=== PATIENT | female | born 1950 | race African-American/Black ===

== ENCOUNTER 2016-06-14 04:36 | Inpatient (IN) | payer MEDICARE ==
[2016-06-14] MEDS ORDERED: NS 1,000 ML IV ONE ×3 (04:59→06:16)
--- NOTE | 2016-06-14 05:04 | EDPRACDOC ---
- General Information Chief Complaint: Altered Mental Status Stated Complaint: HYPERGLYCEMIA Time Seen by Provider: 06/14/16 04:44 Information Source: [employer] Mode Of Arrival: Ambulance Home Medications: Home Medications Metformin HCl 1,000 mg PO BID 11/19/12 Lipase/Protease/Amylase [Zenpep Dr 20,000 Units Capsule] 3 cap PO .TIDWM SEE COMMENTS 12/08/12 Escitalopram Oxalate [Lexapro] 20 mg PO DAILY 02/25/13 Alprazolam [Xanax] 0.5 mg PO Q8H PRN #90 tablet 07/06/14 Losartan Potassium [Cozaar] 50 mg PO DAILY 08/02/14 Sitagliptin Phosphate [Januvia] 100 mg PO DAILY 08/21/14 Bupropion HCl [Wellbutrin Sr] 150 mg PO BID 07/24/15 Docusate Sodium [Stool Softener] 100 mg PO DAILY PRN 07/24/15 Insulin Glargine [Lantus Pen] 6 unit SQ QHS 07/24/15 Insulin Glargine [Lantus Pen] 11 unit SQ QAM 07/24/15 Iron [Niferex-150] 1 cap PO DAILY 07/24/15 Loratadine [Claritin] 10 mg PO DAILY PRN 07/24/15 Magnesium Oxide [Magnesium] 400 mg PO DAILY 07/24/15 Meclizine HCl 25 mg PO DAILY PRN 07/24/15 Meloxicam 15 mg PO DAILY 07/24/15 Multivitamin [Multiple Vitamins] 1 each PO DAILY 07/24/15 Oxycodone HCl/Acetaminophen [Percocet 5-325 mg Tablet] 1 tab PO Q6H PRN Tramadol HCl 50 mg PO Q6H PRN 07/24/15 Vitamin E 200 unit PO DAILY 07/24/15 Allergies/Adverse Reactions: Allergies Allergy/AdvReac Type Severity Reaction Status Date / Time No Known Allergies Allergy Verified 05/04/16 03:37 - History of Present Illness Onset: WO[employer]WORK[employer]ER HPI: EMS CALLED TO [facility]IDENCE BY FRIEND. PT ALTERED. FOUND TO HAVE HIGH BLOOD SUGAR. EMS WAS UNABLE TO DETERMINE HOW IT WAS DISCOVERED THAT PT WAS ALTERED IN THE MIDDLE OF THE NIGHT. PT GIVES LIMITED HISTORY. PT DID SAY SOMETHING ABOUT TAKING HER MEDICINES TOO FAST. - Treatment Prior to ED Arrival Reported Medications/Treatment [employer] EMS Treatment BLS IV No ED Past Medical History - History Reviewed Yes Nurses notes reviewed and agree except as marked - Patient Medical History Cardiac History: Reports: Hypertension, Hypercholesterolemia Respiratory History: Reports: Asthma, COPD (no oxygen at home), Pneumonia, Emphysema GI/ History: Reports: Renal Disease, Urinary Tract Infection, Gastroesophageal Reflux, Pancreatitis Musculoskeletal History: Reports: Arthritis (left shoulder) Psychological History: Reports: Depression, Anxiety. Denies: Substance Use Disorder Systemic History: Reports: Diabetes (Type 2). Denies: Cancer Surgical History: Reports: Cholecystectomy, Other (Knee) - Family Medical History Reports: Hypertension, Diabetes, Cancer (Sister), Stroke, Cardiac Disorders - Social Medical History Smoking Status: Heavy tobacco smoker (5 or more cigarettes/day or daily pipe/ cigar) (Smokes 1 ppd. Started at 15 yo.) Social History: Denies: Substance Use Disorder EDM Review of Systems - Review of Systems ROS Negative Except as Marked: Yes All systems reviewed and were negative except as marked ROS Unobtainable: Yes Review of systems cannot be obtained due to the patient's medical condition Respiratory: No Symptoms Reported Cardiovascular: No Symptoms Reported Gastrointestinal: No Symptoms Reported - Physical Exam Constitutional: Alert (Awake), No apparent distress Oriented to: Person, Place Last recorded Vital Signs: Last Vital Signs Temp 98.1 F 06/14/16 04:36 Pulse 67 06/14/16 04:48 Resp 16 06/14/16 04:48 BP 128/58 L 06/14/16 04:48 Pulse Ox 93 06/14/16 04:48 Oxygen Pulse Oxygen Saturation 93 O2 Device Room Air Oxygen Flow Rate Fraction of Inspired Oxygen ( FIO2) - HEENT Head: Normal ( normocephalic) Eye Exam: Normal (PERRL, EOMI, Sclera white) Oropharynx: Normal (Pharynx:Moist without exudate,Gums-no swelling) Nose: No Symptoms Reported (septum midline) Neck: Normal (FROM, trachea at midline) - Respiratory/Cardiovascular Respiratory: Normal - CTA (BBS clear to auscultation without adventitious sounds ) Cardiovascular: Normal (RRR without murmur, gallop or rub) - GI Auscultation: Normal (NABS) Tenderness: Non tender Ortega's Sign: Negative - Musculoskeletal Back: Normal (Non-Tender) Extremities: Normal (Normal tone, Pulses 2+ No cyanosis or edema, FROM) - Integumentary Skin: Normal, Warm, Dry Lymphatics: Normal (no adenopathy) - Neurologic Motor Function: Normal (Normal tone, Pulses 2+ No cyanosis or edema, FROM) Cranial Nerve: Normal (CN II-X11 intact sensation, strength 5/5) Cerebellar: Normal Mood Description: Normal - Re-evaluation Re-evaluation 1 Re-evaluation Time: 06:24 NO CHANGE IN MENTAL STATUS - Results 06/14/16 04:44 06/14/16 04:44 POC Capillary Glucose > 600 MG/DL (70-99) H* 06/14/16 04:39 Lab Results 06/14/16 04:39 POC Capillary Glucose > 600 H* - EKG EKG #1 EKG Time: 05:10 -: Yes EKG interpreted by me Rate: bpm: 68 Ethel: Normal Hypertrophy: None (EARLY REPOL) ST: Normal Comments: NORMAL EKG - Departure Yes I personally saw and evaluated the patient. Disposition: Admit IP To This Hospital Condition: Stable Final Diagnosis: Acute renal insufficiency, Dehydration Diabetic ketoacidosis Qualifiers: Diabetes mellitus type: type 1 Diabetes mellitus complication detail: with coma Qualified Code(s): E10.11 - Type 1 diabetes mellitus with ketoacidosis with coma Forms: Patient Discharge Instructions, ED Discharge Instructions Decision to Admit Time: 06:16 Decision to admit date: 06/14/16 Decision to admit: from ED - Physician Consulted Hospitalist Time Called: 06:17 Provider Called: Yony Castaneda Time [employer] Returned Call: 06:22
[2016-06-14 05:13] LABS: AUTOMATED BASOPHIL 0.5 % (0-2); AUTOMATED EOSINOPHIL 3.5 % (0-5); AUTOMATED LYMPH 36.7 % (17-44); AUTOMATED NEUTROPHIL 50.3 % (45-76); MPV 8.7 fL (7.4-10.4)
[2016-06-14 05:19] LABS: BLOOD UREA NITROGEN 52 MG/DL (7-17); CALC CORRECTED 8.9 MG/DL (8.4-10.2); CALCIUM 8.6 MG/DL (8.4-10.2); CHLORIDE 90 mEq/L (98-107); TOTAL PROTEIN 6.4 G/DL (6.3-8.2)
[2016-06-14 05:21] LABS: PARTIAL THROMB. TIME 24.3 SEC (22-35)
[2016-06-14 05:28] LABS: CALCULATED OSMOLALITY 287 MOs/Kg (270-290); GLUCOSE 721 MG/DL (70-99); SODIUM LEVEL 123 mEq/L (137-146)
[2016-06-14] MEDS ORDERED: REGULAR INSULIN 100 UNITS/ML - 3 ML VIAL SQ ONE (05:28)
--- NOTE | 2016-06-14 05:49 | DIRPT ---
CLINICAL DATA: 66-year-old female with altered mental status EXAM: CT HEAD WITHOUT CONTRAST TECHNIQUE: Contiguous axial images were obtained from the base of the skull through the vertex without intravenous contrast. COMPARISON: CT dated 10/16/2011 FINDINGS: There is slight prominence of the ventricles and sulci compatible with age-related volume loss. Mild periventricular and deep white matter hypodensities represent chronic microvascular ischemic changes. There is no intracranial hemorrhage. No mass effect or midline shift identified. The visualized paranasal sinuses and mastoid air cells are well aerated. The calvarium is intact. IMPRESSION: No acute intracranial hemorrhage. Mild age-related atrophy and chronic microvascular ischemic disease. If symptoms persist and there are no contraindications, MRI may provide better evaluation if clinically indicated Electronically Signed By: Jeromy Cruz M.D. On: 06/14/2016 05:46
[2016-06-14 05:53] LABS: ALL NEG? NO
--- NOTE | 2016-06-14 05:54 | DIRPT ---
CLINICAL DATA: Hyperglycemia, increased urinary frequency. EXAM: PORTABLE CHEST 1 VIEW COMPARISON: Chest radiograph July 07, 2015 FINDINGS: Cardiomediastinal silhouette is normal. The lungs are clear without pleural effusions or focal consolidations. Trachea projects midline and there is no pneumothorax. Soft tissue planes and included osseous structures are non-suspicious. Old RIGHT posterior rib fractures. Surgical clips in the abdomen. IMPRESSION: No acute cardiopulmonary process. Electronically Signed By: Claire Elkins M.D. On: 06/14/2016 05:51
[2016-06-14 05:56] LABS: WBC/URINE 0-2 (0-5)
[2016-06-14 05:57] LABS: LEUKOCYTES/URINE NEG (NEGATIVE); NITRITE/URINE NEG (NEGATIVE); URINE OCCULT BLOOD NEG (NEG/TRACE)
[2016-06-14 05:59] LABS: MDMA* NEG (NEGATIVE); METHAMPHETAMINES NEG (NEGATIVE); OXYCODONE *POSITIVE* (NEGATIVE)
[2016-06-14] MEDS: Insulin, Regular 100 UNITS in NS 99 ML IV SCH ×6 (06:05→23:43)
[2016-06-14 06:06] LABS: ETOH-MGDL < 10 mg/dL
[2016-06-14 06:10] LABS: VENOUS BEb -5.2 (+/- 2)
[2016-06-14] MEDS ORDERED: NALOXONE 0.4 MG/ML AMPULE IV ONE (06:35)
[2016-06-14] MEDS ORDERED: GLUCOSE (ORAL GEL) 15 GM TUBE PO PRN (06:42)
[2016-06-14] MEDS ORDERED: DEXTROSE 25 GM/50 ML PFS IV PRN (06:42)
[2016-06-14] MEDS ORDERED: Albuterol/Ipratropium Neb 3 ML NEB NEB PRN (06:42)
[2016-06-14] MEDS ORDERED: GLUCAGON 1 MG VIAL SQ PRN (06:42)
[2016-06-14] MEDS ORDERED: Docusate Sodium 100 MG CAP PO PRN (06:44)
[2016-06-14] MEDS ORDERED: TRAMADOL HCL 50 MG TAB PO PRN (06:44)
--- NOTE | 2016-06-14 06:54 | HISTPHYS ---
- Chief Complaint confusion, obtundation, - History of Present Illness 66 yoaaf presented to emergency room early on today for evaluation of high sugars and confusion. At time of examination patient remained sleepy and confused however on detailed questioning she stays that she has been feeling extremely thirsty and drinking significant amount of fluids over past few days. Her sugar has been running high. Her p.o. intake for solids has been poor since she has been feeling nauseated and having crampy abdominal pain. She reports nausea but no vomiting. She has become sleepy and confused and was found by the friend completely obtained ended unable to answer any questions. She was brought to emergency room via 911. ED workup showed blood sugar of 721, acute renal failure with BUN 52 and creatinine 1.7, sodium of 123 and potassium of 6.5. Aggressive IV hydration was instituted patient mentation has slightly improved. Medical consultation was phoned in for inpatient treatment.. - Medical History Cardiac History: Reports: Hypertension, Hypercholesterolemia Respiratory History: Reports: Asthma, COPD (no oxygen at home), Pneumonia, Emphysema GI/ History: Reports: Renal Disease, Urinary Tract Infection, Gastroesophageal Reflux, Pancreatitis Musculoskeletal History: Reports: Arthritis (left shoulder), Osteoarthritis Systemic History: Reports: Diabetes (Type 2). Denies: Cancer Neurological History: Reports: No Significant History Psychological History: Reports: Depression, Anxiety. Denies: Substance Use Disorder - Surgical History Reports: Cholecystectomy, Other (Knee) - Medictions/Allergies Allergies No Known Allergies Allergy (Verified 05/04/16 03:37) Current Medication List: Reviewed Home Medications Metformin HCl 1,000 mg PO BID 11/19/12 Lipase/Protease/Amylase [Zenpep Dr 20,000 Units Capsule] 3 cap PO .TIDWM SEE COMMENTS 12/08/12 Escitalopram Oxalate [Lexapro] 20 mg PO DAILY 02/25/13 Alprazolam [Xanax] 0.5 mg PO Q8H PRN #90 tablet 07/06/14 Losartan Potassium [Cozaar] 50 mg PO DAILY 08/02/14 Sitagliptin Phosphate [Januvia] 100 mg PO DAILY 08/21/14 Bupropion HCl [Wellbutrin Sr] 150 mg PO BID 07/24/15 Docusate Sodium [Stool Softener] 100 mg PO DAILY PRN 07/24/15 Insulin Glargine [Lantus Pen] 6 unit SQ QHS 07/24/15 Insulin Glargine [Lantus Pen] 11 unit SQ QAM 07/24/15 Iron [Niferex-150] 1 cap PO DAILY 07/24/15 Loratadine [Claritin] 10 mg PO DAILY PRN 07/24/15 Magnesium Oxide [Magnesium] 400 mg PO DAILY 07/24/15 Meclizine HCl 25 mg PO DAILY PRN 07/24/15 Meloxicam 15 mg PO DAILY 07/24/15 Multivitamin [Multiple Vitamins] 1 each PO DAILY 07/24/15 Oxycodone HCl/Acetaminophen [Percocet 5-325 mg Tablet] 1 tab PO Q6H PRN Tramadol HCl 50 mg PO Q6H PRN 07/24/15 Vitamin E 200 unit PO DAILY 07/24/15 - Family History Reports: Hypertension, Diabetes, Cancer (Sister), Stroke, Cardiac Disorders - Social History Travel Outside of [place] in the Last 3 Months?: No Lives: Alone Smoking Status: Heavy tobacco smoker (5 or more cigarettes/day or daily pipe/ cigar) (Smokes 1 ppd. Started at 15 yo.) Social History: Denies: Substance Use Disorder - Review of Systems Constitutional: Diaphoresis, Fatigue, Loss of Appetite, Weakness, Weight loss Eyes: No Symptoms Reported Ears: No Symptoms Reported Nose: No Symptoms Reported Mouth: No Symptoms Reported Throat/Neck: No Symptoms Reported Respiratory: Cough, Wheezing, Dyspnea Cardiovascular: Palpitations Gastrointestinal: Nausea, Abdominal Pain, Heartburn Genitourinary: No Symptoms Reported Neurological: Gait Difficulty, Numbness, Weakness, Tingling, Mood Changes, Memory Changes, Changes in Orientation Musculoskeletal:: Arthritis Integumentary: No Symptoms Reported Allergic/Immunologic: No Symptoms Reported Hematologic: No Symptoms Reported Endocrine: No Symptoms Reported Psychiatric: Anxiety, Depression - Physical Exam Vital Signs: Initial Vitals Temperature 98.1 F 06/14/16 04:36 Pulse Rate 70 06/14/16 04:36 Respiratory Rate 18 06/14/16 04:36 Blood Pressure 149/67 06/14/16 04:36 Pulse Oxygen Saturation 94 06/14/16 04:36 Constitutional: Cachectic, Confused, Somnolent, Uncooperative Oriented to: Person, Place - HEENT Head: Normal Eye: Normal Oropharynx: Membranes Dry ENT EAC: Normal TMJ: Normal Nose: No Symptoms Reported Respiratory: Diminished, Rhonchi Cardiovascular: Normal, Systolic murmur - GI Auscultation: Normal Palpation: Normal Tenderness: Mild, Epigastric Rectal Exam: Deferred - Exam Deferred: Yes - Musculoskeletal Back: Normal Extremities: Edema Spine: non-tender - Integumentary Skin: Normal, Warm, Dry Lymphatics: Normal - Neurologic Memory Impaired: Unable to Test Motor Function: Abnormal Cranial Nerve: Normal Cerebellar: Ataxia Mood Description: Depressed Thought: Other (confused) - Focused CV Perfusion Exam Vital Signs: Last Vital Signs Temp 98.1 F 06/14/16 04:36 Pulse 71 06/14/16 06:38 Resp 19 06/14/16 06:38 BP 143/67 06/14/16 06:38 Pulse Ox 93 06/14/16 06:38 - Diagnostic Findings Allergies No Known Allergies Allergy (Verified 05/04/16 03:37) 06/14/16 04:44 06/14/16 04:44 Initial Vitals Temperature 98.1 F 06/14/16 04:36 Pulse Rate 70 06/14/16 04:36 Respiratory Rate 18 06/14/16 04:36 Blood Pressure 149/67 06/14/16 04:36 Pulse Oxygen Saturation 94 06/14/16 04:36 Abnormal Lab Results 06/14/16 06/14/16 06/14/16 04:39 04:44 04:44 Hgb 11.2 L MCH 26.5 L MCHC 30.8 L VBG pH Mixed VBG pO2 Mixed VBG Base Excess Sodium 123 L* Potassium 6.5 H Chloride 90 L BUN 52 H Creatinine 1.70 H Estimated GFR (MDRD) 36 L Glucose 721 H* POC Capillary Glucose > 600 H* Alkaline Phosphatase 241 H Urine Glucose (UA) Ur Oxycodone Screen U Benzodiazepines Scrn 06/14/16 06/14/16 06/14/16 05:30 05:30 06:00 Hgb MCH MCHC VBG pH 7.22 L Mixed VBG pO2 96.0 H Mixed VBG Base Excess -5.2 L Sodium Potassium Chloride BUN Creatinine Estimated GFR (MDRD) Glucose POC Capillary Glucose Alkaline Phosphatase Urine Glucose (UA) 4+ H Ur Oxycodone Screen *positive* H U Benzodiazepines Scrn *positive* H Patient Name: JYOTHI BRUNO LOC: ED : 1950 AGE: 66 Order Date:06/14/16 Date of Service: Report # [id number] Ord Physician: Heath Vargas DO Exam # [id number] Emergency Physician: Heath Vargas DO Exam(s): [id number] CT/CT HEAD W/O CM CLINICAL DATA: 66-year-old female with altered mental status EXAM: CT HEAD WITHOUT CONTRAST TECHNIQUE: Contiguous axial images were obtained from the base of the skull through the vertex without intravenous contrast. COMPARISON: CT dated 10/16/2011 FINDINGS: There is slight prominence of the ventricles and sulci compatible with age-related volume loss. Mild periventricular and deep white matter hypodensities represent chronic microvascular ischemic changes. There is no intracranial hemorrhage. No mass effect or midline shift identified. The visualized paranasal sinuses and mastoid air cells are well aerated. The calvarium is intact. IMPRESSION: No acute intracranial hemorrhage. Mild age-related atrophy and chronic microvascular ischemic disease. If symptoms persist and there are no contraindications, MRI may provide better evaluation if clinically indicated Electronically Signed By: Jeromy Cruz M.D. On: 06/14/2016 05:46 Electronically Signed By: Jeromy Cruz MD Electronically Signed Date/Time: 549 Dictate Date/Time: 06/14/16 0543 Technologist: Sherron Ojeda Transcribed - Assessment (1) Diabetic ketoacidosis E13.10 - OTH DIABETES MELLITUS WITH KETOACIDOSIS WITHOUT COMA Acute Qualifiers: Diabetes mellitus type: type 1 Diabetes mellitus complication detail: with coma Qualified Code(s): E10.11 - Type 1 diabetes mellitus with ketoacidosis with coma Patient be admitted to ICU. Will follow DKA protocol. Monitor sugar q.1 hour. (2) Acute renal insufficiency N28.9 - DISORDER OF KIDNEY AND URETER, UNSPECIFIED Acute Present on Admission: Yes Aggressive IV hydration we provided. Avoid any nephrotoxins monitor BMP. Withhold her losartan (3) Dehydration E86.0 - DEHYDRATION Acute Present on Admission: Yes Continue aggressive IV hydration. Monitor weight and fluid balance (4) Metabolic encephalopathy G93.41 - METABOLIC ENCEPHALOPATHY Acute Present on Admission: Yes Most likely due to metabolic derangements and chronic narcotic therapy. Continue maximal supportive care. Minimize sedation (5) GERD (gastroesophageal reflux disease) K21.9 - GASTRO-ESOPHAGEAL REFLUX DISEASE WITHOUT ESOPHAGITIS Chronic Present on Admission: Yes Qualifiers: Esophagitis presence: without esophagitis Qualified Code(s): K21.9 - Gastro -esophageal reflux disease without esophagitis Continue PPI (6) Tobacco abuse Z72.0 - TOBACCO USE Chronic Present on Admission: Yes Advised to quit (7) Hypertensive cardiovascular disease or syndrome I11.9 - HYPERTENSIVE HEART DISEASE WITHOUT HEART FAILURE Chronic Present on Admission: Yes Qualifiers: Heart failure presence: without heart failure Qualified Code(s): I11.9 - Hypertensive heart disease without heart failure Monitor hemodynamics keep SBP around 140. (8) Hyperkalemia E87.5 - HYPERKALEMIA Acute Present on Admission: Yes Will give dose of calcium gluconate and IV bicarbonate.. This should slowly correct with IV insulin infusion and DKA treatment (9) Anemia D64.9 - ANEMIA, UNSPECIFIED Chronic Present on Admission: Yes Qualifiers: Anemia type: unspecified type Iron deficiency anemia type: I Vitamin B12 deficiency anemia type: V Folate deficiency anemia type: F Bone marrow failure anemia type: B Hemolytic anemia type: H Other causes of anemia: O Qualified Code(s): D64.9 - Anemia, unspecified Monitor counts Case Care Discussed with: Patient, Nursing Staff, Other Total Time: 65 min . Critical Care: Yes Code: 291
[2016-06-14] MEDS ORDERED: NS 1,000 ML IV SCH ×2 (07:00→21:53)
[2016-06-14] MEDS ORDERED: REGULAR INSULIN 100 UNITS/ML - 3 ML VIAL SQ SCH (07:00)
[2016-06-14] MEDS ORDERED: DKA ELECTROLYTE PROTOCOL SCH (07:00)
[2016-06-14] MEDS ORDERED: ENOXAPARIN 40 MG/0.4 ML PFS SQ SCH (07:00)
[2016-06-14] MEDS ORDERED: Insulin, Regular 100 UNITS in NS 99 ML IV SCH ×2 (08:00)
[2016-06-14] MEDS ORDERED: NS IV ONE (08:00)
[2016-06-14] MEDS ORDERED: CALCIUM GLUCONATE IV ONE (08:00)
[2016-06-14] MEDS ORDERED: SODIUM BICARBONATE 50 MEQ/50 ML (8.4%) PFS IV ONE (08:00)
[2016-06-14] MEDS: ESCITALOPRAM OXALATE 10 MG TAB PO SCH (08:02)
[2016-06-14] MEDS: SITAGLIPTIN 50 MG TAB PO SCH (08:02)
[2016-06-14] MEDS: BuPROPion 150 MG SR TAB PO SCH ×2 (08:02→19:56)
[2016-06-14] MEDS: PANTOPRAZOLE 40 MG VIAL IV SCH ×2 (08:08→19:56)
--- NOTE | 2016-06-14 08:16 | GENMEDPROG ---
Chief Complaint: DKA, somnolence, acute kidney injury, hyponatremia Subjective Note: Patient is somnolent, resting comfortably in bed in the ICU. She is responsive to my questions, oriented x3. Denies any abdominal pain, says that she has been very thirsty recently. Denies any signs or symptoms of specific infection , no fevers at home. Notes Reviewed: Yes Events from last night noted and discussed with Clinical Staff Current Medication List: Reviewed DVT Prophylaxis: Yes - Physical Examination Vital Signs and I&O: Last Vital Signs Temp 98.1 F 06/14/16 04:36 Pulse 73 06/14/16 07:32 Resp 18 06/14/16 07:32 BP 143/67 06/14/16 07:32 Pulse Ox 94 06/14/16 07:32 Oxygen Pulse Oxygen Saturation 94 O2 Device Room Air Oxygen Flow Rate Fraction of Inspired Oxygen ( FIO2) Intake & Output 06/12/16 06/13/16 06/14/16 06/15/16 06:59 06:59 06:59 06:59 Intake Total 1810 Balance 1810 General: Oriented x3, Cooperative, Moderate distress, Weakness, Fatigue HEENT: EOMI (Sclera white) Neck: Normal Trachea alignment, Normal inspection Lymphatics: Normal Respiratory: Normal - CTA. negative: Accessory Muscle Use Cardiovascular: Regular rate, No Gallops,Rubs/Murmurs GI: Normal bowel sounds, Soft, Non tender (non distended) Extremities/Musculoskeletal: Other (Normal Tone). negative: Edema, Cyanosis Skin: No rashes, No significant lesion Neurological: Cranial Nerves (II-XII intact) Lab/DI/Studies Reviewed: Laboratory Tests 06/14/16 06/14/16 06/14/16 04:44 04:44 04:44 WBC 7.2 Hgb 11.2 L Hct 36.5 INR 1.0 VBG pH Mixed VBG pCO2 Mixed VBG pO2 Sodium 123 L* Potassium 6.5 H Chloride 90 L BUN 52 H Creatinine 1.70 H Glucose 721 H* 06/14/16 06:00 WBC Hgb Hct INR VBG pH 7.22 L Mixed VBG pCO2 57.0 Mixed VBG pO2 96.0 H Sodium Potassium Chloride BUN Creatinine Glucose - Assessment (1) Diabetic ketoacidosis Acute E13.10 - OTH DIABETES MELLITUS WITH KETOACIDOSIS WITHOUT COMA Qualifiers: Diabetes mellitus type: type 1 Diabetes mellitus complication detail: with coma Qualified Code(s): E10.11 - Type 1 diabetes mellitus with ketoacidosis with coma Comment/Plan: Patient has been admitted to the intensive care unit with elevated blood sugars over 700 the time of admission, and significant metabolic acidosis. She is being treated with insulin drip, aggressive IV hydration. Monitor blood sugars every hour the ICU, check q.6 BMPs to keep a very close eye on her electrolytes as these will change rapidly and she may need electrolyte repletion. (2) Hyponatremia Acute E87.1 - HYPO-OSMOLALITY AND HYPONATREMIA Comment/Plan: Acute hyponatremia, likely related to her increased free water intake for the last several days. Aggressive IV hydration with normal saline, patient is NPO. There is also certainly a component of pseudohyponatremia related to her significant hyperglycemia. As he is overall corrected, expect her sodium to rise appropriately. Sodium recheck is pending at this time. (3) Acute renal insufficiency Acute N28.9 - DISORDER OF KIDNEY AND URETER, UNSPECIFIED Comment/Plan: Aggressive IV hydration we provided. Avoid any nephrotoxins monitor BMP. Withhold her losartan (4) Dehydration Acute E86.0 - DEHYDRATION Comment/Plan: Continue aggressive IV hydration. Monitor weight and fluid balance (5) Hyperkalemia Acute E87.5 - HYPERKALEMIA Comment/Plan: She is given a dose of calcium gluconate as well as IV bicarbonate. Her hyperkalemia should also correct with IV insulin, aggressive IV hydration and improved renal function. (6) Anemia Chronic D64.9 - ANEMIA, UNSPECIFIED Qualifiers: Anemia type: unspecified type Iron deficiency anemia type: I Vitamin B12 deficiency anemia type: V Folate deficiency anemia type: F Bone marrow failure anemia type: B Hemolytic anemia type: H Other causes of anemia: O Qualified Code(s): D64.9 - Anemia, unspecified Comment/Plan: Monitor counts (7) GERD (gastroesophageal reflux disease) Chronic K21.9 - GASTRO-ESOPHAGEAL REFLUX DISEASE WITHOUT ESOPHAGITIS Qualifiers: Esophagitis presence: without esophagitis Qualified Code(s): K21.9 - Gastro -esophageal reflux disease without esophagitis Comment/Plan: Continue PPI (8) Acute renal insufficiency Acute N28.9 - DISORDER OF KIDNEY AND URETER, UNSPECIFIED (9) Essential (primary) hypertension Acute I10 - ESSENTIAL (PRIMARY) HYPERTENSION - Plan In summary this patient is acutely and critically ill. The patient requires treatment of vital organ failure and measures to prevent further life- threatening deterioration of the above conditions. I personally reviewed and ordered lab testing, as well as imaging. I reviewed old medical records from previous hospitalizations as available, and spent the time mentioned below in critical care of this patient including counseling and coordination of care. Total Time: 65
[2016-06-14 08:45] LABS: BLOOD UREA NITROGEN 44 MG/DL (7-17); CALCIUM 8.4 MG/DL (8.4-10.2); CALCULATED OSMOLALITY 279 MOs/Kg (270-290); CHLORIDE 112 mEq/L (98-107); GLUCOSE 95 MG/DL (70-99); SODIUM LEVEL 139 mEq/L (137-146)
[2016-06-14] MEDS ORDERED: Non-Formulary Medication ITEM (Multivitamin [Multiple Vitamins] 1 EACH) PO SCH (09:00)
[2016-06-14] MEDS ORDERED: Non-Formulary Medication ITEM (Escitalopram Oxalate [Lexapro] 20 MG) PO SCH (09:00)
[2016-06-14] MEDS ORDERED: SITAGLIPTIN PHOSPHATE 100 MG PO SCH (09:00)
[2016-06-14] MEDS ORDERED: VITAMIN E 200 UNIT PO SCH (09:00)
[2016-06-14] MEDS: DEXTROSE 25 GM/50 ML PFS IV PRN ×2 (09:04→10:33)
[2016-06-14] MEDS ORDERED: D5W/NS/KCl 20 mEq 1,000 ML IV SCH (10:00)
[2016-06-14] MEDS ORDERED: SODIUM BICARBONATE IV SCH (10:00)
[2016-06-14] MEDS ORDERED: [UNRECOGNIZED DRUG - OTHER] IV SCH (10:00)
[2016-06-14 10:03] LABS: BLOOD UREA NITROGEN 42 MG/DL (7-17); CALCIUM 9.5 MG/DL (8.4-10.2); CALCULATED OSMOLALITY 284 MOs/Kg (270-290); CHLORIDE 110 mEq/L (98-107); GLUCOSE 56 MG/DL (70-99); SODIUM LEVEL 143 mEq/L (137-146)
[2016-06-14] MEDS: VITAMIN E 400 UNITS/CAP CAP PO SCH (11:15)
[2016-06-14] MEDS: MAGNESIUM OXIDE 400 MG TAB PO SCH (11:15)
[2016-06-14] MEDS: IRON POLYSACCHARIDE CAP PO SCH (11:15)
[2016-06-14] MEDS: REGULAR INSULIN 100 UNITS/ML - 3 ML VIAL SQ SCH ×3 (11:15→23:40)
[2016-06-14] MEDS: VITAMINS, MULTIPLE CAP PO SCH (11:15)
[2016-06-14 11:43] LABS: BLOOD UREA NITROGEN 39 MG/DL (7-17); CALCIUM 9.1 MG/DL (8.4-10.2); CALCULATED OSMOLALITY 282 MOs/Kg (270-290); CHLORIDE 110 mEq/L (98-107); GLUCOSE 103 MG/DL (70-99); SODIUM LEVEL 142 mEq/L (137-146)
[2016-06-14] MEDS ORDERED: Vaccine Screening Complete SCH (13:00)
[2016-06-14 15:47] LABS: BLOOD UREA NITROGEN 30 MG/DL (7-17); CALCIUM 9.3 MG/DL (8.4-10.2); CALCULATED OSMOLALITY 280 MOs/Kg (270-290); CHLORIDE 109 mEq/L (98-107); GLUCOSE 161 MG/DL (70-99); SODIUM LEVEL 141 mEq/L (137-146)
--- NOTE | 2016-06-14 15:54 | DIRPT ---
CLINICAL DATA: 66-year-old female status post central line placement. Initial encounter. EXAM: CHEST 1 VIEW COMPARISON: 0522 hours today. FINDINGS: Portable AP upright view at 1331 hours. Right IJ approach central line placed, tip projects at the level of the geoffrey. No pneumothorax. Stable lung volumes. Stable cardiac size and mediastinal contours. Allowing for portable technique, the lungs are clear. Chronic right lateral rib fractures. IMPRESSION: 1. Right IJ central line placed, tip at the level of the lower SVC. 2. No pneumothorax or acute cardiopulmonary abnormality. Electronically Signed By: Camilo Cote M.D. On: 06/14/2016 15:51
--- NOTE | 2016-06-14 17:25 | PCM.SURGCO ---
Consultation Date: 06/14/16 Requesting Physician: Campbell Mckeon Manager Corporate Marketing: Jose Ramon Vazquez Consult Reason: Poor Venous Access - History of Present Illness The patient is a very unfortunate female who had been admitted to the intensive care unit with diabetic ketoacidosis. She had massive fluctuations in her sugars and was in need of central venous access for her treatment. We are asked to obtain this. Chief Complaint: confusion, obtundation, - Past Medical and Surgical History Cardiac History: Reports: Hypertension Respiratory History: Reports: Asthma, COPD (no oxygen at home), Pneumonia, Emphysema GI/ History: Reports: Renal Disease, Urinary Tract Infection, Pancreatitis Musculoskeletal History: Reports: Arthritis (left shoulder) Psychological History: Reports: Depression, Anxiety Past Surgical History: Reports: Cholecystectomy Allergies No Known Allergies Allergy (Verified 05/04/16 03:37) Home Medications Metformin HCl 1,000 mg PO BID 11/19/12 Lipase/Protease/Amylase [Zenpep Dr 20,000 Units Capsule] 3 cap PO .TIDWM SEE COMMENTS 12/08/12 Escitalopram Oxalate [Lexapro] 20 mg PO DAILY 02/25/13 Alprazolam [Xanax] 0.5 mg PO Q8H PRN #90 tablet 07/06/14 Losartan Potassium [Cozaar] 50 mg PO DAILY 08/02/14 Sitagliptin Phosphate [Januvia] 100 mg PO DAILY 08/21/14 Bupropion HCl [Wellbutrin Sr] 150 mg PO BID 07/24/15 Docusate Sodium [Stool Softener] 100 mg PO DAILY PRN 07/24/15 Insulin Glargine [Lantus Pen] 6 unit SQ QHS 07/24/15 Insulin Glargine [Lantus Pen] 11 unit SQ QAM 07/24/15 Iron [Niferex-150] 1 cap PO DAILY 07/24/15 Loratadine [Claritin] 10 mg PO DAILY PRN 07/24/15 Magnesium Oxide [Magnesium] 400 mg PO DAILY 07/24/15 Meclizine HCl 25 mg PO DAILY PRN 07/24/15 Meloxicam 15 mg PO DAILY 07/24/15 Multivitamin [Multiple Vitamins] 1 each PO DAILY 07/24/15 Oxycodone HCl/Acetaminophen [Percocet 5-325 mg Tablet] 1 tab PO Q6H PRN Tramadol HCl 50 mg PO Q6H PRN 07/24/15 Vitamin E 200 unit PO DAILY 07/24/15 - Social History Travel Outside of [place] in the Last 3 Months?: No Lives: Other (Unable to be determined.) Smoking Status: Heavy tobacco smoker (5 or more cigarettes/day or daily pipe/ cigar) - Family History Reports: Hypertension, Diabetes, Cancer (Sister), Stroke, Cardiac Disorders - Review of Systems Yes Review of systems cannot be obtained due to the patient's medical condition (Patient obtunded and noncommunicative.) - Physical Exam Vital Signs: Initial Vitals Temperature 98.1 F 06/14/16 04:36 Pulse Rate 70 06/14/16 04:36 Respiratory Rate 18 06/14/16 04:36 Blood Pressure 149/67 06/14/16 04:36 Pulse Oxygen Saturation 94 06/14/16 04:36 Constitutional: Decreased Consciousness Oriented to: Unable to Test - HEENT Head: Normal. negative: Laceration, Tender Eye: Normal. negative: Edema, Scleral Icterus Oropharynx: Normal. negative: Membranes Dry, Red ENT EAC: Normal. negative: Blood TMJ: Normal. negative: Crepitance, Tender Nose: No Symptoms Reported. negative: Abrasion, Bleeding Respiratory: Normal - CTA. negative: Diminished, Rhonchi Cardiovascular: Normal. negative: Bradycardia, Tachycardia, Irregular - GI Auscultation: Normal Palpation: Normal. negative: Enlarged liver, Enlarged spleen Tenderness: Non tender Rectal Exam: Deferred - Exam Deferred: Yes - Musculoskeletal Back: Normal. negative: CVA Tenderness Extremities: Normal. negative: Clubbing, Cyanosis, Edema Spine: negative: stiff neck - Integumentary Skin: Normal. negative: Clammy, Diaphoretic Lymphatics: Normal. negative: Adenopathy, Tender - Neurologic Memory Impaired: Unable to Test Motor Function: Unable to Test Cranial Nerve: Unable to Test Cerebellar: Unable to Test Mood Description: Uncooperative - Lab Results 06/14/16 04:44 06/15/16 06:00 - Assessment/Plan (1) Poor venous access I87.8 - OTHER SPECIFIED DISORDERS OF VEINS Acute Comment: Will arrange for central line placement with ultrasound guidance. (2) Diabetic ketoacidosis E13.10 - OTH DIABETES MELLITUS WITH KETOACIDOSIS WITHOUT COMA Acute type 1 with coma E10.11 - Type 1 diabetes mellitus with ketoacidosis with coma Comment: Needs aggressive treatment. We have been asked to assist in this care by obtain central venous access. (3) Acute renal insufficiency N28.9 - DISORDER OF KIDNEY AND URETER, UNSPECIFIED Acute Comment: Patient to be resuscitated, will obtain central venous access.
--- NOTE | 2016-06-14 17:27 | HIMOPRPT ---
DATE OF PROCEDURE: 06/14/16 PREOPERATIVE DIAGNOSES: DKA, and poor venous access. POSTPROCEDURE DIAGNOSES: DKA, and poor venous access. PROCEDURE: Placement of right internal jugular vein, triple-lumen catheter with ultrasound guidance. SURGEON: Jose Ramon Vazquez MD. FABRICATION WELDER: None. ANESTHESIA: 1% lidocaine. ESTIMATED BLOOD LOSS: Minimal. COMPLICATIONS: None noted. INDICATIONS: JYOTHI BRUNO is a 66-year-old F patient, who had DKA , was in need of central IV access. We have been asked to obtain this. Consent had been obtained. We did this at the bedside. The risks and benefits including the risk of infection, bleeding, anesthesia, as well as the unforeseen complications, and risk of pneumothorax and hemothorax have been explained. The patient understood and agreed. PROCEDURE IN DETAIL: The patient was identified as such after appropriate time- out, and sterile prep and drape, the right neck was anesthetized with 1% lidocaine and then under ultrasound guidance, a large bore needle was placed in internal jugular vein. Good blood return was obtained. Guidewire was placed. Needle was removed. Over the guidewire, dilator and triple-lumen catheter placed without any problems. This sutured in position. All ports were flushed and withdrawn. Dry sterile dressing was applied. The patient tolerated this without any difficulties.
[2016-06-14] MEDS ORDERED: D5W/NS 1,000 ML IV SCH (18:00)
[2016-06-14] MEDS: ENOXAPARIN 40 MG/0.4 ML PFS SQ SCH (18:42)
[2016-06-14] MEDS: LABETALOL 20 MG/4 ML SYRINGE IV PRN ×2 (19:56→23:26)
[2016-06-14 20:37] LABS: BLOOD UREA NITROGEN 23 MG/DL (7-17); CALCIUM 8.8 MG/DL (8.4-10.2); CALCULATED OSMOLALITY 280 MOs/Kg (270-290); CHLORIDE 107 mEq/L (98-107); GLUCOSE 317 MG/DL (70-99); SODIUM LEVEL 137 mEq/L (137-146)
[2016-06-14] MEDS ORDERED: CHLORHEXIDINE (HIBICLENS) 4 OZ BOTTLE TOP SCH (21:00)
[2016-06-14] MEDS: Magnesium Sulfate 2 gm/D5W 2 GM/50 ML RTU IV SCH (22:28)
[2016-06-14] MEDS: D5W/NS 1,000 ML IV SCH (22:38)
[2016-06-14] MEDS: OXYCODONE HCL 5 MG TABLET PO PRN (22:43)
[2016-06-14] MEDS: ALPRAZOLAM 0.25 MG TAB PO PRN (22:44)
[2016-06-14 23:19] LABS: BLOOD UREA NITROGEN 21 MG/DL (7-17); CALCIUM 8.8 MG/DL (8.4-10.2); CALCULATED OSMOLALITY 280 MOs/Kg (270-290); CHLORIDE 105 mEq/L (98-107); GLUCOSE 370 MG/DL (70-99); SODIUM LEVEL 136 mEq/L (137-146)
[2016-06-15] MEDS: Magnesium Sulfate 2 gm/D5W 2 GM/50 ML RTU IV SCH (01:01)
[2016-06-15] MEDS: REGULAR INSULIN 100 UNITS/ML - 3 ML VIAL SQ SCH ×4 (06:13→20:18)
[2016-06-15] MEDS: SITAGLIPTIN 50 MG TAB PO SCH (06:15)
[2016-06-15 06:39] VITALS: BMI 23.6
[2016-06-15 07:08] LABS: BLOOD UREA NITROGEN 17 MG/DL (7-17); CALC CORRECTED 9.9 MG/DL (8.4-10.2); CALCULATED OSMOLALITY 271 MOs/Kg (270-290); CHLORIDE 110 mEq/L (98-107); GLUCOSE 54 MG/DL (70-99); SODIUM LEVEL 141 mEq/L (137-146); TOTAL PROTEIN 5.6 G/DL (6.3-8.2)
[2016-06-15] MEDS: D5W/NS 1,000 ML IV SCH (07:43)
--- NOTE | 2016-06-15 08:05 | GENMEDPROG ---
Chief Complaint: Diabetic ketoacidosis Subjective Note: She is doing much better this morning, she is awake and alert and comfortable. She denies any acute complaints whatsoever. She is hungry, would like to eat a normal meal today. Notes Reviewed: Yes Events from last night noted and discussed with Clinical Staff Current Medication List: Reviewed DVT Prophylaxis: Yes - Physical Examination Vital Signs and I&O: Last Vital Signs Temp 98 F 06/15/16 07:00 Pulse 73 06/15/16 07:00 Resp 20 06/15/16 07:00 BP 166/71 06/15/16 07:00 Pulse Ox 97 06/15/16 07:00 Oxygen Pulse Oxygen Saturation 97 O2 Device Nasal Cannula Oxygen Flow Rate 2 Fraction of Inspired Oxygen ( FIO2) Intake & Output 06/13/16 06/14/16 06/15/16 06/16/16 06:59 06:59 06:59 06:59 Intake Total 4147 Output Total 4075 Balance 72 Patient's weight 64.274 kg General: Alert, Oriented x3, Cooperative, No acute distress HEENT: EOMI (Sclera white) Neck: Normal Trachea alignment, Normal inspection Lymphatics: Normal Respiratory: Normal - CTA. negative: Accessory Muscle Use Cardiovascular: Regular rate, No Gallops,Rubs/Murmurs GI: Normal bowel sounds, Soft, Non tender (non distended) Extremities/Musculoskeletal: Other (Normal Tone). negative: Edema, Cyanosis Skin: No rashes, No significant lesion Neurological: Cranial Nerves (II-XII intact) Lab/DI/Studies Reviewed: Laboratory Tests 06/14/16 06/15/16 06/15/16 20:00 02:54 05:54 Sodium Potassium 5.1 BUN Creatinine POC Capillary Glucose 178 H 58 L Magnesium 1.40 L 06/15/16 06/15/16 06:00 06:00 Sodium 141 Potassium 4.2 BUN 17 Creatinine 0.80 POC Capillary Glucose Magnesium 2.60 H - Assessment (1) Diabetic ketoacidosis Acute E13.10 - OTH DIABETES MELLITUS WITH KETOACIDOSIS WITHOUT COMA Qualifiers: Diabetes mellitus type: type 1 Diabetes mellitus complication detail: with coma Qualified Code(s): E10.11 - Type 1 diabetes mellitus with ketoacidosis with coma Comment/Plan: Patient has been admitted to the intensive care unit with elevated blood sugars over 700 the time of admission, and significant metabolic acidosis. She was treated with insulin drip, I have aggressive hydration with electrolyte repletion. Sugars responded very well to this, in fact she was slightly hypoglycemic this morning and was allowed to have a diet. We will transition her to sliding scale insulin with q.a.c. and HS fingerstick checks. Will discontinue all IV hydration at this time, as her electrolytes have normalized and she will be having p.o. intake. Will continue to check electrolytes intermittently. (2) Hyponatremia Acute E87.1 - HYPO-OSMOLALITY AND HYPONATREMIA Comment/Plan: Acute hyponatremia, likely related to her increased free water intake for the last several days. She has responded well to aggressive IV hydration, sodium is back to normal and her mental status is normal as well. (3) Acute renal insufficiency Acute N28.9 - DISORDER OF KIDNEY AND URETER, UNSPECIFIED Comment/Plan: Aggressive IV hydration we provided. Avoid any nephrotoxins monitor BMP. Withhold her losartan (4) Dehydration Acute E86.0 - DEHYDRATION Comment/Plan: Continue aggressive IV hydration. Monitor weight and fluid balance (5) Hyperkalemia Acute E87.5 - HYPERKALEMIA Comment/Plan: She was given a dose of calcium gluconate as well as IV bicarbonate in the emergency department, hyperkalemia resolved quickly and now her potassium is in the normal range. (6) Anemia Chronic D64.9 - ANEMIA, UNSPECIFIED Qualifiers: Anemia type: unspecified type Iron deficiency anemia type: I Vitamin B12 deficiency anemia type: V Folate deficiency anemia type: F Bone marrow failure anemia type: B Hemolytic anemia type: H Other causes of anemia: O Qualified Code(s): D64.9 - Anemia, unspecified Comment/Plan: Monitor counts (7) GERD (gastroesophageal reflux disease) Chronic K21.9 - GASTRO-ESOPHAGEAL REFLUX DISEASE WITHOUT ESOPHAGITIS Qualifiers: Esophagitis presence: without esophagitis Qualified Code(s): K21.9 - Gastro -esophageal reflux disease without esophagitis Comment/Plan: Continue PPI (8) Acute renal insufficiency Acute N28.9 - DISORDER OF KIDNEY AND URETER, UNSPECIFIED (9) Essential (primary) hypertension Acute I10 - ESSENTIAL (PRIMARY) HYPERTENSION - Plan Admitted for DKA with severely elevated blood sugars and associated electrolyte abnormality. Not doing much better this morning, with normal mental status ready to have a p.o. diet. She will be transferred out of the intensive care unit later this morning.
[2016-06-15] MEDS: ESCITALOPRAM OXALATE 10 MG TAB PO SCH (09:13)
[2016-06-15] MEDS: PANTOPRAZOLE 40 MG VIAL IV SCH ×2 (09:13→20:19)
[2016-06-15] MEDS: BuPROPion 150 MG SR TAB PO SCH ×2 (09:14→20:19)
[2016-06-15] MEDS ORDERED: GLUCAGON 1 MG VIAL SQ PRN (09:18)
[2016-06-15] MEDS ORDERED: DEXTROSE 25 GM/50 ML PFS IV PRN (09:18)
[2016-06-15] MEDS ORDERED: GLUCOSE (ORAL GEL) 15 GM TUBE PO PRN (09:18)
[2016-06-15] MEDS: LABETALOL 20 MG/4 ML SYRINGE IV PRN ×2 (09:23→17:38)
[2016-06-15] MEDS: MAGNESIUM OXIDE 400 MG TAB PO SCH (12:07)
[2016-06-15] MEDS: IRON POLYSACCHARIDE CAP PO SCH (12:08)
[2016-06-15] MEDS: VITAMIN E 400 UNITS/CAP CAP PO SCH (12:08)
[2016-06-15] MEDS: VITAMINS, MULTIPLE CAP PO SCH (12:08)
[2016-06-15] MEDS: 1/2NS 1,000 ML IV SCH (17:33)
[2016-06-15] MEDS ORDERED: SODIUM CHLORIDE 0.9% 3 ML FLUSH FLUSH PRN (17:40)
[2016-06-15] MEDS: ENOXAPARIN 40 MG/0.4 ML PFS SQ SCH (17:41)
[2016-06-15] MEDS ORDERED: SODIUM CHLORIDE 0.9% 3 ML FLUSH FLUSH SCH (18:00)
[2016-06-15] MEDS ORDERED: SODIUM CHLORIDE 0.9% 5 ML FLUSH FLUSH PRN (18:38)
[2016-06-15] MEDS: GABAPENTIN 300 MG CAP PO SCH (20:19)
[2016-06-15] MEDS: ALPRAZOLAM 0.25 MG TAB PO PRN (22:24)
[2016-06-16] MEDS: 1/2NS 1,000 ML IV SCH (05:59)
[2016-06-16] MEDS: GABAPENTIN 300 MG CAP PO SCH ×2 (06:00→13:35)
[2016-06-16] MEDS ORDERED: SODIUM CHLORIDE 0.9% 5 ML FLUSH FLUSH SCH (06:00)
[2016-06-16] MEDS: REGULAR INSULIN 100 UNITS/ML - 3 ML VIAL SQ SCH ×2 (06:01→13:35)
[2016-06-16] MEDS: SITAGLIPTIN 50 MG TAB PO SCH (06:01)
[2016-06-16] MEDS: PANCRELIPASE (CREON) CAP PO SCH ×2 (07:55→11:44)
[2016-06-16] MEDS: PANTOPRAZOLE 40 MG VIAL IV SCH (07:55)
[2016-06-16] MEDS ORDERED: GLARGINE INSULIN (LANTUS) 100 UNITS/ML PEN SQ SCH ×2 (08:32→09:00)
[2016-06-16] MEDS ORDERED: DAPAGLIFLOZIN PROPANEDIOL 5 MG PO SCH (09:00)
[2016-06-16] MEDS ORDERED: AMLODIPINE 5 MG TAB PO SCH (09:00)
[2016-06-16 09:07] LABS: BLOOD UREA NITROGEN 7 MG/DL (7-17); CALCULATED OSMOLALITY 265 MOs/Kg (270-290); CHLORIDE 108 mEq/L (98-107); GLUCOSE 78 MG/DL (70-99); SODIUM LEVEL 139 mEq/L (137-146)
[2016-06-16 09:24] VITALS: BP 180/83; PULSE 72; TEMP 98.1
--- NOTE | 2016-06-16 09:28 | PCM.DCS92 ---
- Final/Secondary Discharge Diagnosis (1) Diabetic ketoacidosis Acute E13.10 - OTH DIABETES MELLITUS WITH KETOACIDOSIS WITHOUT COMA type 1 with coma E10.11 - Type 1 diabetes mellitus with ketoacidosis with coma Comment: Patient was admitted to the intensive care unit on June 14 with elevated blood sugars, over 700 as well as impressive metabolic acidosis. She was treated with insulin drip, as well as aggressive hydration and electrolyte repletion. She also had impressive hyponatremia which resolved with resolution of her hyperglycemia and dehydration. Sugars responded well to be on a drip, in fact she was slightly hypoglycemic the morning after admission. She was transitioned quickly to sliding scale insulin with q.a.c. and HS fingerstick checks, started on liquid diet on the day after admission. She has had intermittent high and low blood sugars, which she tells me she does have at home. She has not seen her skidway worker in some time, is due for a follow-up visit. Had a lengthy discussion with her this morning guarding her insulin regimen. Admitted decision to not change any of her regimen, since she does have hypoglycemia often in the mornings. As such, will continue her on her oral diabetic medications, as well as her Tujeo 10 units every morning. She will be discharged home today on this regimen, with instructions to follow up with her skidway worker within the next 1-2 weeks. (2) Hyponatremia Acute E87.1 - HYPO-OSMOLALITY AND HYPONATREMIA Comment: Acute hyponatremia, likely related to her increased free water intake for the last several days. She has responded well to aggressive IV hydration, sodium is back to normal and her mental status is normal as well. (3) Acute renal insufficiency Acute N28.9 - DISORDER OF KIDNEY AND URETER, UNSPECIFIED Present on Admission: Yes Comment: Aggressive IV hydration we provided. Avoid any nephrotoxins monitor BMP. Withhold her losartan (4) Dehydration Acute E86.0 - DEHYDRATION Present on Admission: Yes Comment: Continue aggressive IV hydration. Monitor weight and fluid balance (5) Hyperkalemia Acute E87.5 - HYPERKALEMIA Present on Admission: Yes Comment: She was given a dose of calcium gluconate as well as IV bicarbonate in the emergency department, hyperkalemia resolved quickly and now her potassium is in the normal range. (6) Anemia Chronic D64.9 - ANEMIA, UNSPECIFIED Present on Admission: Yes unspecified type I V F B H O D64.9 - Anemia, unspecified Comment: Monitor counts (7) GERD (gastroesophageal reflux disease) Chronic K21.9 - GASTRO-ESOPHAGEAL REFLUX DISEASE WITHOUT ESOPHAGITIS Present on Admission: Yes without esophagitis K21.9 - Gastro-esophageal reflux disease without esophagitis Comment: Continue PPI (8) Acute renal insufficiency Acute N28.9 - DISORDER OF KIDNEY AND URETER, UNSPECIFIED (9) Essential (primary) hypertension Acute I10 - ESSENTIAL (PRIMARY) HYPERTENSION Discharge Disposition: Home Discharge Condition: Good Cognitive Discharge Status: Unimpaired Fuctional Discharge Status: Independent Forms: Patient Discharge Instructions, ED Discharge Instructions Physician Follow up/Referrals: Dion De La Fuente MD [Primary Care Provider] - One Week Home Medications / New Prescriptions: Continue Metformin HCl 1,000 mg PO BID Lipase/Protease/Amylase [Zenpep Dr 20,000 Units Capsule] 1 cap PO TID Escitalopram Oxalate [Lexapro] 20 mg PO DAILY Alprazolam [Xanax] 0.5 mg PO Q8H PRN #90 tablet PRN Reason: Anxiety Sitagliptin Phosphate [Januvia] 100 mg PO DAILY Docusate Sodium [Stool Softener] 100 mg PO DAILY PRN PRN Reason: Constipation Multivitamin [Multiple Vitamins] 1 tab PO DAILY Vitamin E 200 unit PO DAILY Tramadol HCl 50 mg PO Q12H PRN PRN Reason: Pain Meclizine HCl 25 mg PO DAILY PRN PRN Reason: Dizziness Magnesium Oxide [Magnesium] 400 mg PO DAILY Iron [Niferex-150] 1 cap PO DAILY Oxycodone HCl/Acetaminophen [Percocet 5-325 mg Tablet] 1 tab PO Q8H PRN PRN Reason: Severe Pain Meloxicam 15 mg PO DAILY Bupropion HCl [Wellbutrin Sr] 150 mg PO BID Furosemide [Lasix] 20 mg PO DAILY Dapagliflozin Propanediol [Farxiga] 5 mg PO DAILY Naproxen 500 mg PO BID Losartan Potassium [Cozaar] 100 mg PO DAILY Insulin Lispro [Humalog] 0 units SQ .SLIDING SCALE Insulin Glargine,Hum.rec.anlog [Toujeo Solostar] 10 unit SQ QAM Gabapentin [Neurontin] 300 mg PO TID Amlodipine Besylate [Norvasc] 5 mg PO DAILY O2 Device: Room Air Diet at Discharge: Diabetic Activity: No Restrictions, As Tolerated - DC Summary Notes HPI/Notes: This is a pleasant 66-year-old female with history of type 2 diabetes was admitted to the hospital with grossly elevated blood sugars, and associated acute renal failure, hyperkalemia, hyponatremia and dehydration. She was treated as mentioned above in the usual fashion with aggressive IV fluids, electrolyte repletion and insulin drip. She responded well to this, she is asymptomatic this morning will be discharged home. Please see the hospital problems and discharge problems above for details of the hospital course including diagnostics and treatment. The plan of care including medications, prognosis, follow-up including alarm symptoms for which medical care should be sought were reviewed with the patient and any available family members/caretakers. The patient is agreeable to discharge today, and all questions were answered by me to their satisfaction. Hospital Course Note:: Discharge summary on patient named JYOTHI BRUNO admitted to [facility] on 06/14/16 by Yony Castaneda MD. Date of discharge is []. Total Time: 49 - Physical Exam Vital Signs: Last Vital Signs Temp 98.1 F 06/16/16 09:00 Pulse 72 06/16/16 09:00 Resp 20 06/16/16 09:00 BP 180/83 H 06/16/16 09:00 Pulse Ox 98 06/16/16 09:00 Oxygen Pulse Oxygen Saturation 98 O2 Device Room Air Oxygen Flow Rate 2 Fraction of Inspired Oxygen ( FIO2) Constitutional: No apparent distress, Alert Oriented to: Time, Person, Place - HEENT Head: Normal. negative: Laceration, Tender Eye: Normal. negative: Edema, Scleral Icterus Oropharynx: Normal. negative: Membranes Dry, Red ENT EAC: Normal. negative: Blood TMJ: Normal. negative: Crepitance, Tender Nose: No Symptoms Reported. negative: Abrasion, Bleeding - Respiratory/Cardiovascular Respiratory: Normal - CTA. negative: Diminished, Rhonchi Cardiovascular: Normal. negative: Bradycardia, Tachycardia, Irregular - GI Auscultation: Normal Palpation: Normal. negative: Enlarged liver, Enlarged spleen Tenderness: Non tender Rectal Exam: Deferred - Musculoskeletal Back: Normal. negative: CVA Tenderness Extremities: Normal. negative: Clubbing, Cyanosis, Edema - Integumentary Skin: Normal. negative: Clammy, Diaphoretic Lymphatics: Normal. negative: Adenopathy, Tender - Neurologic Memory Impaired: Unable to Test Cerebellar: Unable to Test Mood Description: Uncooperative
[2016-06-16] MEDS: ESCITALOPRAM OXALATE 10 MG TAB PO SCH (09:37)
[2016-06-16] MEDS: BuPROPion 150 MG SR TAB PO SCH (09:37)
[2016-06-16] MEDS: OXYCODONE HCL 5 MG TABLET PO PRN (09:42)
[2016-06-16] MEDS: MAGNESIUM OXIDE 400 MG TAB PO SCH (11:44)
[2016-06-16] MEDS: VITAMINS, MULTIPLE CAP PO SCH (11:45)
[2016-06-16] MEDS: IRON POLYSACCHARIDE CAP PO SCH (11:45)
[2016-06-16] MEDS: VITAMIN E 400 UNITS/CAP CAP PO SCH (11:45)
== END 2016-06-16 15:29 | disposition home or self-care (01) | DRG 637 ==
LOC: ED 04:36 → ICU 06:42 → MPS3 06-15 11:07
PROVIDERS: ADMIT Internal Medicine; ATTEND Internal Medicine
PROC: 05HM33Z Insertion of Infusion Device into Right Internal Jugular Vein, Percutaneous Approach (ICD-10-PCS; principal; 2016-06-14)
PROC: B543ZZA Ultrasonography of Right Jugular Veins, Guidance (ICD-10-PCS; 2016-06-14)
DX: E10.11 Type 1 diabetes mellitus with ketoacidosis with coma (principal); G93.41 Metabolic encephalopathy; N28.9 Disorder of kidney and ureter, unspecified; E87.5 Hyperkalemia; J44.9 Chronic obstructive pulmonary disease, unspecified; I11.9 Hypertensive heart disease without heart failure; I10 Essential (primary) hypertension; E87.1 Hypo-osmolality and hyponatremia; E86.0 Dehydration; D64.9 Anemia, unspecified; K21.9 Gastro-esophageal reflux disease without esophagitis; E78.00 Pure hypercholesterolemia, unspecified; J45.909 Unspecified asthma, uncomplicated; M19.90 Unspecified osteoarthritis, unspecified site; F41.8 Other specified anxiety disorders; Z79.899 Other long term (current) drug therapy; Z79.4 Long term (current) use of insulin; F17.210 Nicotine dependence, cigarettes, uncomplicated
CPT/HCPCS: 36415; 70450; 71010; 80048; 80053; 80307; 80329; 81001; 82043; 82803; 82962; 83036; 83735; 83880; 84100; 84443; 84484; 85025; 85610; 85730; 87040; 87086; 87641; 93005; 96361; 96365; 96372; 96375; 99285; 99406; G0237; J0610; J1642; J1650; J1815; J2310; J3475; J3490; J7030; J7040; J7060; J7070; S0164